=== PATIENT | female | born 1945 | race Caucasian/White ===

== ENCOUNTER → 2018-12-25 | Outpatient (CLI) | payer OTHER | LOC: M.MRI 10:06 | DX: M17.11 Unilateral primary osteoarthritis, right knee (principal); M23.91 Unspecified internal derangement of right knee ==

== ENCOUNTER 2019-01-27 07:51 | Inpatient (IN) | payer OTHER ==
[2019-01-15 09:08] LABS: HEMATOCRIT 42.6 % (37.0-47.0); HEMOGLOBIN 14.5 gm/dL (12.0-15.0); MCH 31.1 pg (26.0-34.0); MCHC 33.9 g/dL (28.0-37.0); MCV 91.6 fL (80.0-100.0); MPV 8.1 fl. (7.2-11.1); RBC 4.66 mil/uL (4.20-5.00); RDW-CV 13.8 % (10.5-14.5); WBC 5.7 thou/uL (4.0-11.0)
[2019-01-15 09:16] LABS: PROTIME 10.2 Seconds (9.20-11.50)
[2019-01-15 09:17] LABS: URINE BILIRUBIN NEGATIVE (Negative); URINE BLOOD TRACE (Negative); URINE CLARITY CLEAR; URINE COLOR YELLOW; URINE GLUCOSE-RANDOM 1+ (Negative); URINE KETONES NEGATIVE (Negative); URINE LEUKOCYTES-REFLEX NEGATIVE (Negative); URINE NITRITE-REFLEX NEGATIVE (Negative); URINE PROTEIN NEGATIVE (Negative); URINE SPECIFIC GRAVITY <= 1.005 (1.005-1.030); URINE UROBILINOGEN 0.2 E.U./dl (0.2-1.0)
[2019-01-15 09:22] LABS: ALBUMIN 3.6 g/dL (3.4-5.0); CALCIUM 9.1 mg/dL (8.5-10.1); CREATININE 0.9 mg/dL (0.6-1.3); POTASSIUM 3.7 mmol/L (3.5-5.1); TOTAL BILIRUBIN 0.5 mg/dL (<0.1-1.0); TOTAL PROTEIN 7.4 g/dL (6.4-8.2)
--- NOTE | 2019-01-15 17:21 | EKG ---
[place] [address] ELECTROCARDIOGRAM REPORT Name: PALBO VAUGHN Room: PRE IN [facility].#: [id number] Admission: Attend Phys: Bere Cochran Discharge: Date of : 47 Report #: [id number] THIS REPORT FOR: //name// [facility] Test Date: 2019-01-15 Test Time: 09:20:40 Pat Name: PALBO FALK Department: Room: Gender: F Legal Support Assistant: RT : 1945 Requested By: Lei Bhatia Order Number: [id number] Reading MD: Trung Laguerre Measurements Intervals [place] Rate: 68 P: 43 TN: 144 QRS: 15 QRSD: 92 T: 35 QT: 399 QTc: 425 Interpretive Statements Sinus rhythm No previous ECG available for comparison Electronically Signed On 01-15-2019 17:20:50 CDT by Trung Laguerre [email or web address] <ELECTRONICALLY SIGNED> By: Trung Laguerre MD, [facility] 01/15/19 1720 0920 0920 Trung Laguerre MD, FACC /EPI
[~2019-01-27] VITALS: Ht 170.2 cm; Wt 105.2 kg
[~2019-01-27 07:51] MED LIST: ACCUNEB SO1.25 MG/1 INH; FLONASE 0.05%50 MCG NASAL; GLIMEPIRIDE1 MG PO; METFORMIN HCL500 MG PO; NEURONTIN600 MG PO; SYNTHROID175 MCG PO; ZOCOR20 MG PO
[2019-01-27 08:10] VITALS: BP 151/85
[2019-01-27 12:21] VITALS: BP 128/52
--- NOTE | 2019-01-27 13:16 | NUR ---
PT ARRIVED TO UNIT FROM PACU AT 1150. VITALS STABLE. IV PATENT, INFUSING. DRESSING C/D/I. TEDS, FOOT PUMPS, TITI WRAP, HEMOVAC, POLAR PACK AND CONTINUOUS PULSE OX IN PLACE. ON 2LO2. TOLERATING DIET. PAIN CONTROLLED WITH NORCO. DENIED N/V. HAS NOT GOT UP DURING SHIFT. FALL PRECAUTIONS IN PLACE. CALL LIGHT WITHIN REACH. FAMILY IN ROOM. WILL CONTINUE TO MONITOR.
[2019-01-27 16:00] VITALS: BP 134/63
--- NOTE | 2019-01-27 17:34 | NUR ---
PT HAS BEEN RESTING SINCE LAST NOTE ENTRY. PAIN CONTROLLED WITH NORCO. DENIED N/V. DRESSING C/D/I. PT HAS NOT GOT UP DURING SHIFT. VITALS STABLE. IV PATENT. HAS URINATED. HEMOVAC, TEDS, POLARPACK, OXYGEN, PULSE OX AND TITI WRAP IN PLACE. FALL PRECAUTIONS IN PLACE. WILL CONTINUE TO MONITOR.
[2019-01-28] VITALS: BP 123/55
[2019-01-28 04:00] VITALS: BP 111/63
[2019-01-28 04:58] LABS: HEMATOCRIT 36.3 % (37.0-47.0); HEMOGLOBIN 12.3 gm/dL (12.0-15.0)
--- NOTE | 2019-01-28 06:34 | NUR ---
PATIENT HAS SLEPT OFF AND ON DURING THE NIGHT. VSS ON 2L 02 VIA NASAL CANNULA AND CONTINUOUS PULSE OXIMETRY IN PLACE. PATIENT IS UP WITH ASSIST X 1 WITH [place] AND WALKER TO THE [facility]. DRESSING TO RIGHT KNEE IS C/D/I, RYAN HOSE AND SCD'S IN PLACE. HEMOVAC IN PLACE WITH MODERATE AMOUNT OF DRAINAGE. PATIENT TOLERATED CPM WELL. IV IN LEFT FOREARM-SL. IV ABT GIVEN WITHOUT ANY ADVERSE SIDE EFFECTS NOTED. PATIENT INSTRUCTED TO USE CALL LIGHT WHEN NEEDING ASSISTANCE. HOURLY ROUNDS MADE. WILL CONTINUE WITH PLAN OF CARE AND NURSING TO MONITOR.
[2019-01-28 07:30] VITALS: BP 159/69
--- NOTE | 2019-01-28 08:48 | NUR ---
DEFER TO PT. NO OT UNLESS REFERRED BY PT
--- NOTE | 2019-01-28 15:39 | NUR ---
SPOKE WITH PT.AND . WILL BE WITH HER AT HOME TO ASSIST AT DISCHARGE. SHE HAS A FRONT WHEEL WALKER THAT IS HERE IN HER ROOM. HAS A LOT OF STAIRS TO GET INTO HOME BUT WHEN INSIDE THERE ARE NONE. [facility] IS [facility] [address]. DISCUSSED XARELTO AND THAT CM WILL CALL IN TO CHECK COPAY. SHE SAID SHE WOULD LIKE TO USE [facility] FOR FIRST 2 WEEKS AT HOME. SHE HAS TALKED TO THEM. FAXED REFERRAL TO [facility] AND POSSIBLE DISCHARGE TOMORROW.
[2019-01-28 16:34] VITALS: BP 134/52
--- NOTE | 2019-01-28 17:38 | NUR ---
PT REMAINED ALERT AND ORIENTED. PT RESTING IN ROOM. PT C/O PAIN, MEDS GIVEN ORDERED. PT BLED THROUGH DRESSING FOR HEMOVAC REMOVAL SITE. DRESSING CHANGED AND MONITORED. FALL RISK PRECAUTIONS IN PLACE. HOURLY ROUNDING COMPLETED. WILL CONTINUE TO MONTIOR.
[2019-01-28 20:15] VITALS: BP 159/68
[2019-01-29 00:54] VITALS: BP 136/61
[2019-01-29 04:00] VITALS: BP 147/70
[2019-01-29 04:00] LABS: HEMATOCRIT 35.8 % (37.0-47.0); HEMOGLOBIN 12.1 gm/dL (12.0-15.0)
--- NOTE | 2019-01-29 05:34 | NUR ---
PT SLEPT OFF AND ON OVERNIGHT. UP WITH ASSIST, GB AND WALKER TO [facility]SC TO VOID. CPM ON AT HS AND PT TOLERATED WELL. LFA SL. HEMOVAC SITE WITH DRSG BLOODY DRAINAGE UNCHANGED FROM START OF SHIFT. OXY IR GIVEN FOR PAIN WITH GOOD RELIEF. AM LAB DRAWN. POLAR PACK ON AND OPERATING. TOLERATING DIET WITHOUT N/V. ABLE TO USE CALL LITE AND MAKE NEEDS KNOWN.
[2019-01-29 10:55] VITALS: BP 147/70
[2019-01-29] MEDS ORDERED: PERCOCET 5-3251 EACH PO (12:01)
[2019-01-29] MEDS ORDERED: XARELTO10 M1 PO (12:02)
--- NOTE | 2019-01-29 12:28 | NUR ---
PT.UP IN CHAIR. SAID SHE SLEPT SO GOOD LAST NIGHT. IS READY TO DISCHARGE TODAY. WOULD LIKE TO STAY FOR AFTERNOON THERAPY SESSION. CM CALLED IN XARELTO PRESCRIPTION, WRITTEN, TO PT[facility]S [facility] [address]. COPAY WILL BE $18. MADE REFERRAL AND FAXED DISCHARGE ORDERS/MEDS TO [facility]. INFORMED PT.OF COPAY AND THAT HH WILL CALL HER TOMORROW. SHE IS AWARE TO TAKE POLAR AMELIA AND CPM HOME WITH HER.
[2019-01-29 13:45] VITALS: BP 147/70
--- NOTE | 2019-01-29 13:46 | NUR ---
PT GIVEN DISCHARGE INFORMATION, CARE NOTES, AND PRESCRIPTIOSN. IV REMOVED. PT BELONGINGS GATHERED. PT LEFT VIA WHEELCHAIR WITH NURISNG STAFF TO HOME WITH HOME HEALTH. FALL RISK PRECAUTIONS IN PLACE. HOURLY ROUNDING COMPLETED.
--- NOTE | 2019-02-12 08:26 | OP ---
[facility] [address] [place] [address] OPERATIVE REPORT Name: PABLO VAGUHN Room: [address] M.R.#: [id number] Admission: 01/27/19 Attend Phys: Bere Cochran Discharge: 01/29/19 Date of : 47 Report #: [id number] THIS REPORT FOR: //name// CC: Bryce Alexandre Aguero DATE OF SERVICE: 01/27/2019 PREOPERATIVE DIAGNOSIS: Right knee osteoarthritis. POSTOPERATIVE DIAGNOSIS: Right knee osteoarthritis. PROCEDURE: Right total knee arthroplasty. SURGEON: Lei Bhatia II, DO. EXHIBITION SPECIALIST: MOSES Baires. ANESTHESIA: General endotracheal. ESTIMATED BLOOD LOSS: 50 mL. ANTIBIOTICS: Ancef preoperatively. DRAINS: Medium Hemovac. COMPLICATIONS: None. CONDITION OF THE PATIENT: Stable to recovery room. IMPLANTS: Listed in operative record and progress note. BRIEF HISTORY: The patient was seen in the preoperative area. Preoperative H and P was performed. Site was marked, questions were answered. Risks and benefits were discussed with the patient in detail about surgery. The patient wished to proceed, assuming all risks. DESCRIPTION OF PROCEDURE: The patient was taken to the operative suite and placed supine on the operating table in appropriate anesthesia. A well-padded tourniquet applied to the upper thigh, which was inflated to 300 mmHg after gravity exsanguination. The operative knee was sterilely prepped and draped. Surgery began by midline incision. This was carried down to the subcutaneous tissues. A medial parapatellar arthrotomy was performed and carried down to bone. The patella was then everted and excess soft tissue removed around the femur. Femoral cutting block was then applied, checked with drop katt for [facility] [address] [place] [address] OPERATIVE REPORT Name: PABLO VAUGHN Room: [address]#: [id number] Admission: 01/27/19 Attend Phys: Bere Cochran Discharge: 01/29/19 Date of : 47 Report #: [id number] rotational alignment, pinned in appropriate position and appropriate cuts were made. A 4-in-1 cutting block was then applied, checked for rotational alignment, pinned in appropriate position and appropriate cuts were made. The tibia was then exposed. Excess meniscus was removed. Retractor was placed on collateral ligaments. Tibial cutting block was then applied, pinned in appropriate position, checked with a drop katt for rotational alignment and slope and appropriate cut was made. The tibial bone was removed. Tibial base plate was then applied, checked for rotational alignment with drop katt and pinned in appropriate position. Femur was then applied and box cut was reamed. This was then trialed with appropriate spacer, which showed excellent fit and fill and excellent stability of the knee through all range of motion. The patella was reamed in appropriate fashion and sized to appropriate size. Three peg holes were drilled. It was then trialed and showed excellent flexion incision, excellent tracking of the patella within the groove. These trials were removed. The tibia was punched in appropriate fashion. Bone ends were cleansed with Pulsavac irrigation and cement was mixed and applied to final implants. These were then malleted into position and held the knee in extension and compressed to allow cement to cure. After it cured, excess was removed utilizing [place] and osteotome. Wound was then copiously irrigated and the final spacer was then malleted into position. The tourniquet was deflated. Hemostasis was maintained with electrocautery. Pain cocktail was injected. PRP gel sprayed throughout the internal aspects of the knee. Medium Hemovac drain was applied. The capsule was closed with #2 FiberWire and #1 Vicryl in [id number] fashion. Skin was closed with 2-0 Vicryl and running 3-0 Monocryl. Dermabond and sterile dressing applied. William wrap and PolarCare applied. The patient transported to recovery room in stable condition. Counts were correct throughout the procedure. <ELECTRONICALLY SIGNED> By: Lei Bhatia II, DO 02/12/19 0826 [id number] Bhatia II, DO /nt
== END 2019-01-29 13:47 | disposition home health service (06) | DRG 470 ==
LOC: M.PRE → M.ORTHSURG 07:51 → M.TBA 07:51 → M.PRE 08:04 → M.ORTHSURG 11:47 → M.PRE 11:50 → M.ORTHSURG 01-29 13:47
PROVIDERS: Orthopaedic Surgery; ADMIT Internal Medicine
PROC: 0SRC0J9 Replacement of Right Knee Joint with Synthetic Substitute, Cemented, Open Approach (ICD-10-PCS; principal; 2019-01-27)
DX: M17.11 Unilateral primary osteoarthritis, right knee (principal); J98.11 Atelectasis; E11.9 Type 2 diabetes mellitus without complications; E03.9 Hypothyroidism, unspecified; M81.0 Age-related osteoporosis without current pathological fracture; E78.5 Hyperlipidemia, unspecified; J45.909 Unspecified asthma, uncomplicated; Z90.49 Acquired absence of other specified parts of digestive tract; Z89.431 Acquired absence of right foot; Z88.6 Allergy status to analgesic agent; Z88.8 Allergy status to other drugs, medicaments and biological substances; Z79.899 Other long term (current) drug therapy